=== PATIENT | male | born 1950 | race African-American/Black ===

== ENCOUNTER 2019-08-04 12:21 | Observation (INO) | payer MEDICARE ==
[~2019-08-04] VITALS: Ht 167.6 cm; Wt 87.0 kg
[~2019-08-04 12:21] MED LIST: ACCU-CHEK AVIVA PLU1 XX; ALLEGRA-D 1212 HOUR PO; AMOXICILLIN500 MG PO; BACTRIM DS1 TAB PO; CARBAMAZEPIN200 MG PO; CIALIS10 MG PO; COZAAR50 MG PO; DICLOFEN POT50 MG PO; DILAUDID 2MG2 MG/TAB PO; DILTIAZEM240 M1 PO; DILTIAZEM240 MG PO; FLEXERIL5 MG PO; FLONASE NASAL50 MCG; GABAPENTIN300 MG PO; GLIPIZIDE5 MG PO; GLYB/METFO5 MG/500 M PO; JANUVIA100 MG PO; LIPITOR40 M1 PO; LIPITOR80 MG PO; MAXZIDE PO; METFORMIN1000 MG PO; METFORMIN500 MG PO; MICARDIS40 MG PO; NEURONTIN300 MG PO; NIFEDIPINE ER60 M1 OR; NIFEDIPINE ER60 M1 PO; NORCO1 TA1 PO; OMEPRAZOLE40 MG PO; PRILOSEC40 MG PO; PROCARDIA XL60 MG PO; RANITIDINE300 M1 PO; TEGRETOL PO; TIZANIDINE4 MG PO; TRAMADOL HCL50 MG PO; ULTRAM50 M1 PO; ZPAK PO
--- NOTE | 2019-08-04 12:35 | NUR ---
PT PRESENTS WITH CHEST PAIN. WAS SENT OVER BY [facility] WHILE DOING CHECK UP. EKG WAS DONE THERE AND PRINT OUT BROUGHT TO US. PT STATES PAIN OF 5/10 AND NO RADIATION TO NO OTHER PART OF BODY. LUNGS CLEAR BILATERALLY, PT AOX4, NO TENDERNESS DETECTED IN ABDOMEN. ALL PEDAL AND RADIAL PULSES EQUAL. WILL CONTINUE TO MONITOR.
--- NOTE | 2019-08-04 12:35 | NUR ---
PT BROUGHT BACK TO ROOM SOON POSSIBLE . ALERT/ORIENTED X3
[2019-08-04 12:50] LABS: HEMATOCRIT 43.9 % (39.0-50.0); IMMATURE GRANULOCYTES 0.2 % (0.0-5.0); MEAN CELL VOLUME 85.6 fL CALC (80.0-100.0); MEAN CORPUSCULAR HGB 29.2 pG CALC (26.0-32.0); MEAN CORPUSCULAR HGB CONC 34.2 g/L CALC (32.0-36.0); NEUT# 3.26 thou/uL (1.82-7.42); RED BLOOD COUNT 5.13 mill/uL (4.70-6.10); RED CELL DISTRI WIDTH 13.5 % (11.5-15.5)
[2019-08-04 13:08] LABS: ANION GAP 18 (6-22 (CALC)); BUN 16 mg/dL (8-23); BUN/CREATININE RATIO 10 (12-20 (CALC)); CARBON DIOXIDE 23 mmol/l (22-30); CHLORIDE 105 mmol/l (95-108); CREATININE 1.5 mg/dL (0.7-1.3); GFR 47 ML/MIN (>=60 (CALC)); GFR FOR AFR.AMER. 56 ML/MIN (>=60 (CALC)); POTASSIUM 4.4 mmol/l (3.5-5.1); SODIUM 141 mmol/l (137-146)
--- NOTE | 2019-08-04 13:35 | NUR ---
PT RESTING ON STRETCHER WITH CALL LIGHT WITHIN REACH. WILL CONTINUE TO MONITOR.
--- NOTE | 2019-08-04 14:30 | NUR ---
PATIENT RESTING AWAITING DISPOSITION. PATIENT DENIES ANY PAIN OR SOB AT THIS TIME
--- NOTE | 2019-08-04 15:09 | NUR ---
PATIENT TO [facility]
--- NOTE | 2019-08-04 15:09 | NUR ---
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, NON-RADIATING;PT WAS SENT TO [facility] AFTER ABNORMAL EKG OBTAINED BY PCP;PT DENIES ANY CURRENT CHEST PAIN OR DISCOMFORTS,PAIN SCALE AND REPORTING EDUCATED;ASSESSMENT COMPLETED;RESPIRATIONS EVEN AND UNLABORED ON RA,CLEAR LUNG SOUNDS;ABDOMEN DISTENDED/SOFT ON PALPATION AND ACTIVE IN ALL 4 QUADRANTS, LAST BM 08/03/19;STRONG PEDAL PULSES;SKIN INTACT;TELE MONITORING IN PLACE;#20G TO LAC FLUSHED AND PATENT,NS TO BE STARTED @ 100ML/HR PER ORDER;ALLERGY AND FALL BRACLET APPLIED;FRESH WATER AND ADDITIONAL PILLOW PROVIDED PER REQUEST;PT DENIES ANY ADDITIONAL NEEDS AT THIS TIME AND IS ENCOURAGED TO CALL FOR ASSISTANCE IF NEEDED;FALL PRECAUTIONS IN PLACE WITH BED IN THE LOWEST POSITION AND CALL LIGHT IN REACH;WILL CONTINUE TO MONITOR
--- NOTE | 2019-08-04 15:16 | NUR ---
AT BEDSIDE DISCUSSING POC.
[2019-08-04 15:39] VITALS: BP 144/75
--- NOTE | 2019-08-04 17:41 | NUR ---
LAB AT BEDSIDE
[2019-08-04 18:51] VITALS: BP 160/65
--- NOTE | 2019-08-04 20:25 | NUR ---
PT AWAKE SITTING IN BED VISITING WITH COMPANY. PT IS ALERT AND ORIENTED X3. RESP EVEN AND UNLABORED. O2 SAT 96% ON R/A. LUNGS CLEAR BILAT. ABD SOFT AND NONDISTENDED WITH BOWEL SOUNDS PRESENT. NO LOWER EXT EDEMA NOTED. PEDAL PULSES PALPATED BILAT. IV SITE PATENT NO REDNESS OR SWELLING AT SITE. IVF NSS AT 100CC/HR. TELE INTACT. AT BEDSIDE. PT OFFERS NO COMPLAINTS. FREQUENT ROUNDS MADE. CALL MAI WITHIN REACH.
--- NOTE | 2019-08-04 22:35 | NUR ---
PT GIVEN FRESH WATER. RESP EVEN AND UNLABORED. IV SITE PATENT. OFFERS NO COMPLAINTS. SLEEPING AT BEDSIDE. FREQUENT ROUNDS MADE. CALL MAI WITHIN REACH.
--- NOTE | 2019-08-05 00:19 | NUR ---
PT AWAKE WATCHING T.V. RESP EVEN AND UNLABORED. IV SITE PATENT IN LEFT A.C. NO REDNESS OR SWELLING AT SITE. IVF NSS AT 100CC/HR. TELE INTACT. PT OFFERS NO COMPLAINTS. FREQUENT ROUNDS MADE. CALL MAI WITHIN REACH.
[2019-08-05 01:26] VITALS: BP 155/73
--- NOTE | 2019-08-05 02:30 | NUR ---
RESTING IN BED WITH EYES CLOSED. RESP EVEN AND UNLABORED. NO DISTRESS NOTED. IV SITE PATENT. TELE INTACT. FREQUENT ROUNDS MADE. CALL MAI WITHIN REACH.
[2019-08-05 03:55] VITALS: BP 150/80
--- NOTE | 2019-08-05 04:32 | NUR ---
RESTING IN BED WITH EYES CLOSED. ASSESSMENT UNCHANGED. TELE INTACT. IV SITE PATENT. FREQUENT ROUNDS MADE. CALL MAI WITHIN REACH.
--- NOTE | 2019-08-05 06:00 | NUR ---
PT RESTING IN BED. ASSESSMENT UNCHANGED. NO DISTRESS NOTED. IV SITE PATENT NO REDNESS OR SWELLING AT SITE. AWAKE AT BEDSIDE. TELE INTACT. FREQUENT ROUNDS MADE. CALL MAI WITHIN REACH.
[2019-08-05 06:29] LABS: CHOLESTEROL HDL RATIO 4.2 (<4.4 (CALC)); MAGNESIUM 1.6 mg/dL (1.6-2.3)
--- NOTE | 2019-08-05 07:10 | NUR ---
REPORT RECEIVED FROM RICHELLE BLEVINS;PT RESTING IN SUPINE POSITION WITH SPOUSE AT BEDSIDE;INTRODUCED SELF TO PT AND POC DISCUSSED;RESPIRATIONS EVEN AND UNLABORED ON RA;PT DENIES ANY CURRENT CHEST PRESSURE OR PAIN;TELE MONITORING IN PLACE;IV FLUIDS INFUSING WITH EASE TO LAC;PT ENCOURAGED TO CALL FOR ASSISTANCE IF NEEDED;FALL PRECAUTIONS IN PLACE WITH BED IN THE LOWEST POSITION AND CALL LIGHT IN REACH;WILL CONTINUE TO MONITOR
--- NOTE | 2019-08-05 08:00 | NUR ---
PT RESTING IN SEMI FOWLERS POSITION WITH SPOUSE AT BEDSIDE,A&O X3;VS OBTAINED AND ASSESSMENT COMPLETED;PT DENIES ANY CURRENT CHEST PRESSURE OR PAIN, PAIN SCALE AND REPORTING EDUCATED;PT EXPRESSES EAGERNESS TO BE DISCHARGED,RE-ASSURED;RESPIRATIONS EVEN AND UNLABORED ON RA,CLEAR LUNG SOUNDS;ABDOMEN SOFT ON PALPATION AND ACTIVE IN ALL 4 QUADRANTS;STRONG PEDAL PULSES;SKIN INTACT;TELE MONITORING IN PLACE;#20G TO LAC INFUSING NS @ 100ML/HR,SITE APPEARS HEALTHY;PT DENIES ANY ADDITIONAL NEEDS AT THIS TIME AND IS ENCOURAGED TO CALL FOR ASSISTANCE IF NEEDED;CALL LIGHT IN REACH;WILL CONTINUE TO MONITOR
[2019-08-05 08:04] VITALS: BP 158/87
[2019-08-05 11:13] VITALS: BP 155/72
--- NOTE | 2019-08-05 11:20 | NUR ---
PT RESTING IN SEMI FOWLERS POSITION WITH SPOUSE AT BEDSIDE;RESPIRATIONS EVEN AND UNLABORED ON RA;PT DENIES ANY CURRENT PAIN OR DISCOMFORTS;TELE MONITORING IN PLACE;IV SITE PATENT;PT DENIES ANY ADDITIONAL NEEDS AND IS ENCOURAGED TO CALL FOR ASSISTANCE IF NEEDED;CALL LIGHT IN REACH;WILL CONTINUE TO MONITOR
--- NOTE | 2019-08-05 11:32 | NUR ---
AMARILIS JI,ANRP AT BEDSIDE DISCUSSING POC.
[2019-08-05] MEDS ORDERED: XALATAN 0.005%2.5 ML OU (11:43)
[2019-08-05] MEDS ORDERED: LYRICA50 MG PO (11:44)
--- NOTE | 2019-08-05 11:51 | NUR ---
AT BEDSIDE DISCUSSING POC WITH PT AND SPOUSE INCLUDING PLANS TO DISCHARGE HOME,PT VERBALIZES UNDERSTANDING.
[2019-08-05 11:53] LABS: ANION GAP 14 (6-22 (CALC)); BUN 14 mg/dL (8-23); BUN/CREATININE RATIO 11 (12-20 (CALC)); CARBON DIOXIDE 23 mmol/l (22-30); CHLORIDE 107 mmol/l (95-108); CREATININE 1.3 mg/dL (0.7-1.3); GFR 55 ML/MIN (>=60 (CALC)); GFR FOR AFR.AMER. > 60 ML/MIN (>=60 (CALC)); POTASSIUM 4.4 mmol/l (3.5-5.1); SODIUM 139 mmol/l (137-146)
--- NOTE | 2019-08-05 12:26 | NUR ---
ALL DISCHARGE INSTRUCTIONS PROVIDED AT THIS TIME;PT INSTRUCTED TO F/U WITH PCP, MONITOR BP AND BLOOD SUGAR;IV SITE REMOVED WITH CATHETER INTACT AND TELE MONITORING D/C;PT DENIES ANY ADDITIONAL NEEDS OR QUESTIONS;WHEELCHAIR TO BE PROVIDED FOR DISCHARGE HOME;SPOUSE TO TRANSPORT HOME.
--- NOTE | 2019-08-05 12:38 | NUR ---
Discharge instructions given. Patient verbalizes understanding of same. Discharged in stable condition via Wheelchair to Home with spouse. All belongings sent with pt.
== END 2019-08-05 12:38 | disposition home or self-care (01) ==
LOC: ED 12:21 → ED-I 13:37 → ED 13:54 → MS2 13:55
PROVIDERS: Family Medicine; Nurse Practitioner Family; ADMIT Internal Medicine; ATTEND Internal Medicine
DX: R07.89 Other chest pain (principal); I10 Essential (primary) hypertension; E11.40 Type 2 diabetes mellitus with diabetic neuropathy, unspecified; Z79.84 Long term (current) use of oral hypoglycemic drugs; Z87.891 Personal history of nicotine dependence